=== PATIENT | female | born 1930 | race Caucasian/White ===

== ENCOUNTER 2017-08-22 09:05 | Emergency (ER) | payer MEDICARE ==
[2017-08-22 09:52] LABS: #Eosinphils 0.2 thou/uL (0.0-0.7); #Lymphocytes 1.4 thou/uL (1.20-3.40); #Monocytes 0.9 thou/uL (0.11-0.59); #Neutrophils 4.4 thou/uL (1.40-6.50); %Basophils 0.6 % (0.0-1.0); %Lymphocytes 20.1 % (21.0-51.0); %Monocytes 13.1 % (0.0-10.0); %Neutrophils 63.3 % (42.0-75.0); Hemoglobin 13.3 g/dL (12.0-16.0); Mean Corpuscular HGB CONC 34.7 g/dL (32.0-36.0); Mean Corpuscular Hemoglobin 33.4 pg (27.0-31.0); Mean Corpuscular Volume 96.2 fl (81.0-99.0); Mean Platelet Volume 6.7 fL (7.4-10.4); Platelet Count 164 thou/uL (130-400); RBC Distribution Width 11.3 % (11.5-14.5); Red Blood Cell (RBC) Count 3.97 mill/uL (4.20-5.40); White Blood Cell (WBC) Count 6.9 thou/uL (4.8-10.8)
[2017-08-22 10:10] LABS: ALT (SGPT) 11 U/L (8-55); AST (SGOT) 17 U/L (5-34); Albumin 3.9 g/dL (3.4-4.8); Alkaline Phosphatase 61 U/L (40-150); Anion Gap 10 mmol/L (10-20); BUN (Urea Nitrogen) 12 mg/dL (9.8-20.1); Bilirubin, Total 0.8 mg/dL (0.2-1.2); Calc. Creatinine Clearance 0 mL/min (70-130); Calcium 10.4 mg/dL (7.8-10.44); Carbon Dioxide 25 mmol/L (23-31); Chloride 103 mmol/L (98-107); Estimated GFR-MDRD 69; Globulin 2.9 g/dL (2.4-3.5); Glucose 116 mg/dL (83-110); Potassium 4.3 mmol/L (3.5-5.1); Protein, Total 6.8 g/dL (6.0-8.3); Sodium 134 mmol/L (136-145)
--- NOTE | 2017-08-22 10:59 | RAD ---
PA AND LATERAL CHEST: Date: 08/22/17 HISTORY: Cough and congestion. FINDINGS: Lungs appear well aerated and clear of infiltrate. Heart size within normal range. Vascular markings within normal range. IMPRESSION: No evidence of focal infiltrate. POS: [facility]
[2017-08-22] MEDS ORDERED: Azithromycin 250 MG TAB ONE (11:14)
[2017-08-22] MEDS ORDERED: Ondansetron ODT 4 MG TAB ONE (11:14)
[2017-08-22] MEDS ORDERED: Dexamethasone 10 MG/ML VIAL ONE (11:14)
== END 2017-08-22 11:37 | disposition home or self-care (01) ==
LOC: ERS 09:05
DX: I10 Essential (primary) hypertension (principal); R05 Cough; M19.90 Unspecified osteoarthritis, unspecified site; E78.5 Hyperlipidemia, unspecified; Z79.899 Other long term (current) drug therapy
CPT/HCPCS: 36415; 71046; 80053; 83605; 85025; 93005; 96374; J1100; Q0162

== ENCOUNTER 2018-03-01 08:36 | Outpatient (CLI) | payer MEDICARE ==
--- NOTE | 2018-03-01 10:08 | RAD ---
TWO VIEW THORACIC SPINE SERIES: Clinical history: Thoracic radiculitis. FINDINGS: There is S-shaped curvature of the imaged thoracolumbar spine, convex to the left within the lower th oracic and convex to the right within the lumbar spine. There is multilevel moderate degenerative berta nge and kyphosis. No discrete evidence of an acute compression fracture or significant subluxation of the thoracic spine. Nonspecific densities are seen overlying the right upper abdomen. IMPRESSION: Scoliosis, kyphosis and multilevel degenerative change throughout the thoracic spine. POS: [facility]
--- NOTE | 2018-03-01 10:10 | RAD ---
CERVICAL SPINE 4 VIEWS: HISTORY: Cervical radiculopathy. COMPARISON: None. FINDINGS: There is no acute fracture or malalignment. There is moderate to severe degenerative disk space heig ht loss from C3-C7. C7 vertebra is not well seen due to the overlying shadowing from the shoulders. In the neutral position, there is minimal degenerative C3 or C4, 1 mm, anterolisthesis which increase s to 2 mm flexion and goes up to 0 mm with extension. IMPRESSION: Moderate to severe degenerative changes with low-grade translation of the C3-4 interspace, degenerati ve in nature. POS: [facility]
--- NOTE | 2018-03-01 12:45 | MRI ---
MRI CERVICAL SPINE WITHOUT CONTRAST: History: Cervical radiculopathy, neck pain and stiffness x years. Symptoms have progressed and are wo rsening. Comparison: None. Technique: Cervical spine MRI was performed without intravenous gadolinium administration. Multiseque ntial, multiplanar imaging was performed. FINDINGS: There is appropriate T1 and marrow signal intensity of the cervical vertebrae. Cervical spine vertebr al body height is maintained. There is no fracture. 2.1 mm of anterolisthesis of C2 upon C3, 2.9 mm anterolisthesis of C7 upon T1, 3 mm anterolisthesis o f C1 upon C2, 2 mm anterolisthesis of C2 upon C3. Visualized brain parenchymal, cervicomedullary junction, cervical cord and the upper thoracic cord skinner ve a normal size and signal intensity. C2-3: No significant central canal stenosis. Neural foramina are patent. C3-4: Broad based disc osteophyte complex abuts the thecal sac. Mild central canal stenosis. Mild ping ateral foraminal narrowing. C4-5: There is moderate loss of disc space height. No significant central canal stenosis. Neural fora ger are patent. Mild left facet hypertrophy. C5-6: Broad based disc osteophyte complex abuts the thecal sac. Subarachnoid signal intensity is stil l maintained. No significant central canal stenosis or cord signal abnormality. Mild right foraminal narrowing and minimal left foraminal narrowing. C6-7: Broad based disc osteophyte complex abuts the thecal sac. Ventral subarachnoid space is maintai beba. Disc material abuts but does not cause any significant deformity of the cervical cord. Mild cent ral canal stenosis. No cord signal abnormality. Severe right and moderate left foraminal narrowing. C7-T1: No high grade central canal stenosis. Mild right and left foraminal narrowing. IMPRESSION: 1. Spondylolisthesis involving the lower cervical spine and upper thoracic spine as described above. 2. No evidence of high grade central canal stenosis or cord signal abnormality. 3. Varying degrees of neural foraminal stenosis as detailed above. Severe right foraminal narrowing a t C6-7. POS: [facility]
--- NOTE | 2018-03-01 13:32 | MRI ---
MRI THORACIC SPINE WITHOUT CONTRAST: FINDINGS: The aortic contour is nonaneurysmal. No retroperitoneal adenopathy. No marrow infiltrative process. There are modic type I endplate changes at T7-T8, T8-T9, T9-T10, and T10-T11. There is no acute fracture or malalignment. At T7-T8, there is a broad-based posterior di sk bulge narrowing the ventral CSF space, without significant spinal canal narrowing. The neural for ana are patent. At T8-T9, there is also a broad-based posterior disk osteophyte complex, also mild ly narrowing the ventral CSF space, without significant spinal canal narrowing. No significant neura l foraminal narrowing. At T9-T10, there is moderate degenerative disk space height loss. A posterio r central disk osteophyte complex narrows the ventral CSF space to approximately 7 mm. No significan t neural foraminal narrowing. IMPRESSION: 1. Mild to moderate spondylosis of the thoracic spine with multiple levels of ventral cerebrospinal fluid space narrowing without significant neural foraminal narrowing. 2. Mild reversed S-shaped scoliosis. POS: [facility]
== END 2018-03-01 08:37 | disposition home or self-care (01) ==
LOC: BICMRI 08:36
PROVIDERS: ATTEND Nurse Practitioner Family
DX: M47.22 Other spondylosis with radiculopathy, cervical region (principal); M47.24 Other spondylosis with radiculopathy, thoracic region; M51.16 Intervertebral disc disorders with radiculopathy, lumbar region; M41.9 Scoliosis, unspecified; M43.12 Spondylolisthesis, cervical region; M43.14 Spondylolisthesis, thoracic region; M48.02 Spinal stenosis, cervical region
CPT/HCPCS: 72050; 72070; 72141; 72146

== ENCOUNTER 2018-03-25 08:16 | Outpatient (CLI) | payer MEDICARE ==
--- NOTE | 2018-03-25 09:36 | RAD ---
THREE VIEWS THORACIC SPINE: History: Thoracic radiculitis. Date: 03-25-18 Comparison: 03-01-18 FINDINGS: AP, lateral, and swimmer's views of the thoracic spine demonstrate some mild S-shaped scoliotic curva ture of the thoracic spine. Small anterior osteophytes compatible with degenerative changes seen. No evidence of acute thoracic spine fracture is seen. Radiographic appearance of the thoracic spine is s table and unchanged. IMPRESSION: Some degenerative changes seen in the thoracic spine. No acute thoracic spine pathology is seen. The patient's MRI was approximately one month earlier. If there is acute thoracic spine symptoms, rep eat MRI may be of use. POS: [facility]
--- NOTE | 2018-03-25 09:38 | RAD ---
LUMBAR SPINE FOUR VIEWS: Technique: Lateral, flexion and extension and AP views of the lumbar spine are submitted. Comparison: None available. FINDINGS: Images demonstrate S-shaped scoliosis of the lumbar spine. Five non-rib bearing lumbar vertebrae are seen. There is disc space height loss at all of the lumbar levels. No definite evidence of acute frac tures or anterolisthesis is seen. No significant abnormalities seen on flexion or extension views. POS: [facility]
== END 2018-03-25 08:17 | disposition home or self-care (01) ==
LOC: RAD 08:16
PROVIDERS: ATTEND Nurse Practitioner Family
DX: M47.816 Spondylosis without myelopathy or radiculopathy, lumbar region (principal); M47.24 Other spondylosis with radiculopathy, thoracic region
CPT/HCPCS: 72070; 72110

== ENCOUNTER 2018-04-02 13:03 | Outpatient (CLI) | payer MEDICARE ==
--- NOTE | 2018-04-02 15:05 | MRI ---
THORACIC SPINE MRI WITHOUT CONTRAST: Date: 04/02/18 HISTORY: Thoracic spine radiculopathy. Pain. COMPARISON: 03/10/18. TECHNIQUE: Thoracic spine MRI is performed without intravenous Gadolinium administration. Multisequential, multi planar imaging is performed. FINDINGS: Interval T1 marrow signal hypointensity involving the superior 3/4 of the T11 vertebral body. There i s associated STIR hyperintensity suggesting vertebral body edema from a fracture. Minimal compression fracture is suspected. There is no significant loss of vertebral body height or significant retropul fabiola. There is evidence of Type I and II Modic change at the T6-T7 level, unchanged from the previous examination. There is stable anterolisthesis of T1 upon T2 and T2 upon T3. Visualized mediastinal structures, lung parenchyma, and solid organs are unremarkable. Conus medullaris terminates at the L1-L2 disc space level. There is stable degenerative change of the thoracic spine with varying degrees of central canal stenosis. Neural foramina are patent. With regard to the thoracic cord, there is no malacic change. No T2 hyperintensity or cord expansion. IMPRESSION: 1. Stable degenerative changes of the thoracic spine. 2. Interval abnormal T1 marrow signal hypointensity with associated edema involving the superior 3/4 of the T11 vertebral body suggesting edema from a probable minimal osteoporotic fracture. POS: [facility]
--- NOTE | 2018-04-02 15:19 | MRI ---
MRI LUMBAR SPINE: Date: 04-02-18 Provided Clinical History: Back pain. FINDINGS: No comparisons. Five lumbar vertebral bodies are assumed. Lumbar alignment appears normal. Lumbar vertebral body heig hts appear preserved. Recent superior endplate compression deformity of T11 is seen on the sagittal i mages. The conus medullaris is normal in single and terminates at an appropriate level. The visualize d extraspinal soft tissues demonstrate no significant abnormality. L1-2: There is prominent disc space height loss and endplate degenerative change. There is a broad ba sed disc bulge and bilateral facet arthritis. There is effacement of the left subarticular region wit h potential for impingement on the traversing left L2 nerve root. There is no significant foraminal n arrowing apparent. L2-3: There is a broad based disc bulge and bilateral facet arthritis. There is mild/moderate left an d no significant right foraminal narrowing. There is mild central canal stenosis. L3-4: There is disc space height loss and endplate degenerative change. There is a broad based disc b ulge and bilateral facet arthritis. There is circumferential attenuation of the thecal sac by epidura l fat. There is moderate central canal stenosis. There is severe left foraminal narrowing. There is n o significant right foraminal narrowing. L4-5: There is a endplate degenerative change and Schmorl's node formation. There is a broad based di sc bulge and bilateral facet arthritis. There is effacement of the right greater than left subarticul ar regions with potential for impingement on the traversing right L5 nerve root. There is mild left a nd mild/moderate right foraminal narrowing. L5-S1: There is disc space height loss and a broad based disc bulge. There is bilateral facet arthrit is. There is moderate bilateral foraminal narrowing. There is no significant central canal stenosis a pparent. IMPRESSION: 1. Recent appearing superior endplate compression deformity at T11. 2. Advanced multilevel lumbar disc and facet degenerative change producing areas of canal and foramin al narrowing as above. POS: [facility]
== END 2018-04-02 13:04 | disposition home or self-care (01) ==
LOC: TBSIIMAG 13:03
PROVIDERS: ATTEND Nurse Practitioner Family
DX: M54.6 Pain in thoracic spine (principal); M54.5 Low back pain; M43.8X4 Other specified deforming dorsopathies, thoracic region; M47.816 Spondylosis without myelopathy or radiculopathy, lumbar region; M47.817 Spondylosis without myelopathy or radiculopathy, lumbosacral region; M48.061 Spinal stenosis, lumbar region without neurogenic claudication; M48.07 Spinal stenosis, lumbosacral region; M47.814 Spondylosis without myelopathy or radiculopathy, thoracic region
CPT/HCPCS: 72146; 72148

== ENCOUNTER 2018-11-15 15:12 | Outpatient (CLI) | payer MEDICARE ==
--- NOTE | 2018-11-15 15:42 | RAD ---
LEFT HIP 2 VIEWS: Date: 11/15/18 HISTORY: Left hip pain. FINDINGS/IMPRESSION: Mild degenerative changes are present. No fracture, dislocation, or bony destruction identified. POS: [facility]
--- NOTE | 2018-11-15 15:43 | RAD ---
AP PELVIS: Date: 11/15/18 HISTORY: Left hip pain. FINDINGS/IMPRESSION: There are degenerative changes in the hip joints bilaterally. No fracture, dislocation, or bony destr uction is seen. There is lumbar spondylosis. POS: [facility]
== END 2018-11-15 15:13 | disposition home or self-care (01) ==
LOC: RAD 15:12
PROVIDERS: ATTEND Nurse Practitioner Family
DX: M25.552 Pain in left hip (principal); M16.0 Bilateral primary osteoarthritis of hip; M47.816 Spondylosis without myelopathy or radiculopathy, lumbar region
CPT/HCPCS: 72170

== ENCOUNTER 2018-12-29 10:05 | Outpatient (CLI) | payer MEDICARE ==
--- NOTE | 2018-12-29 11:35 | MRI ---
Exam: Left hip MRI without IV contrast: HISTORY: Left hip pain FINDINGS: No evidence for abnormal marrow signal to suggest avascular necrosis, fracture, or acute stress injur y. There is some generalized mild bilateral hip joint cartilage loss. Minimal fluid in the left trochanteric bursa evidence for bursitis. No evidence for acute tendon tear or acute muscle injury. B lunted degenerated appearing acetabular labrum including the anterior and lateral labrum evidence for severe fraying-degenerative labral tears. IMPRESSION: Small amount of fluid in the left trochanteric bursa. Generalized degenerative-osteoarthrosis changes of both hip joints with some joint space loss bilater ally. Degenerated appearing labrum evidence for degenerative labral tear/severe fraying.
== END 2018-12-29 10:06 | disposition home or self-care (01) ==
LOC: BICMRI 10:05
PROVIDERS: ATTEND Specialist
DX: M25.552 Pain in left hip (principal); M16.0 Bilateral primary osteoarthritis of hip

== ENCOUNTER 2019-01-03 09:55 | Inpatient (IN) | payer MEDICARE ==
[2019-01-03 11:04] LABS: #Eosinphils 0.2 thou/uL (0.0-0.7); #Lymphocytes 0.6 thou/uL (1.20-3.40); #Monocytes 0.5 thou/uL (0.11-0.59); #Neutrophils 2.5 thou/uL (1.40-6.50); %Basophils 0.8 % (0.0-1.0); %Eosinophils 4.6 % (0.0-10.0); %Lymphocytes 14.8 % (21.0-51.0); %Monocytes 12.7 % (0.0-10.0); %Neutrophils 67.1 % (42.0-75.0); Hemoglobin 13.3 g/dL (12.0-16.0); Mean Corpuscular HGB CONC 34.4 g/dL (32.0-36.0); Mean Corpuscular Hemoglobin 33.1 pg (27.0-31.0); Mean Corpuscular Volume 96.2 fL (78.0-98.0); Platelet Count 165 thou/uL (130-400); RBC Distribution Width 12.3 % (11.5-14.5); Red Blood Cell (RBC) Count 4.03 mill/uL (4.20-5.40); White Blood Cell (WBC) Count 3.8 thou/uL (4.8-10.8)
[2019-01-03 11:27] LABS: ALT (SGPT) 13 U/L (8-55); AST (SGOT) 17 U/L (5-34); Alkaline Phosphatase 63 U/L (40-150); Anion Gap 9 mmol/L (10-20); BUN (Urea Nitrogen) 10 mg/dL (9.8-20.1); Bilirubin, Total 0.7 mg/dL (0.2-1.2); Calc. Creatinine Clearance 0 mL/min (70-130); Calcium 10.5 mg/dL (7.8-10.44); Carbon Dioxide 27 mmol/L (23-31); Chloride 104 mmol/L (98-107); Estimated GFR-MDRD 72; Globulin 2.5 g/dL (2.4-3.5); Glucose 94 mg/dL (83-110); Potassium 3.9 mmol/L (3.5-5.1); Protein, Total 6.5 g/dL (6.0-8.3); Sodium 136 mmol/L (136-145)
--- NOTE | 2019-01-03 12:18 | RAD ---
PORTABLE CHEST: Date: 01/03/19 HISTORY: Chest tightness and shortness of breath. Bilateral leg swelling. FINDINGS: Heart size appears borderline for portable technique. The aorta is tortuous. The lungs show chronic c hange. No focal infiltrative process or signs of failure. IMPRESSION: Borderline cardiomegaly with chronic lung change. POS: [facility]
[2019-01-03 12:31] LABS: D-Dimer Test 3.11 *mcg/mL (0.27-0.43)
--- NOTE | 2019-01-03 12:52 | ULT ---
EXAM: Bilateral lower extremity venous Doppler HISTORY: Bilateral lower extremity edema. FINDINGS: Grayscale, color-flow, Doppler evaluation, spectral analysis of the bilateral lower extremities venou s structures is performed with 2-D imaging. The bilateral common femoral, superficial femoral, popliteal, posterior tibial, proximal greater saphenous and profunda femoral veins are imaged. There is increased echogenic material and decreased lumen compressibility as well as diminished flow in the right lower extremity popliteal vein compatible with nonocclusive DVT. In addition, the distal superficial femoral veins bilaterally are not well visualized on grayscale imaging limiting ev aluation for nonocclusive DVT at these levels. There is flow within each distal superficial femoral vein. There is otherwise normal luminal compressibility, flow, and augmentation in the visualized jonnathan p venous structures of the bilateral lower extremities. IMPRESSION: 1. Nonocclusive DVT right popliteal vein. 2. Suboptimal evaluation of the distal superficial femoral veins bilaterally on moore scale imaging wh ich limits evaluation for nonocclusive thrombus, there is flow within each distal superficial femoral vein. 3. Findings of right popliteal vein thrombus were discussed with Dr. Siddiqui in the emergency departm ent by the distribution engineering technologist, Chastity, at the time of this exam.
[2019-01-03 12:55] LABS: INR-International Normal Ratio 1.1; Prothrombin Time 13.9 SEC (12.0-14.7)
[2019-01-03] MEDS ORDERED: ISOVUE-370 76%-LOCM 1 ML ONE (13:14)
--- NOTE | 2019-01-03 13:32 | CT ---
CT arteriogram chest with IV contrast and 3-D imaging HISTORY: Dyspnea. Chest pain. FINDINGS: A long, thin filling defect across the pulmonary artery bifurcation extends into the segmen blanche anterior basilar segment of each lower lobe. Thoracic aorta is patent with normal branching of the great vessels at the aortic arch. Small amount of arterial calcification. Mild peripheral atelectasis of each lung. No pleural fluid or mediastinal adenopathy. IMPRESSION: Bilateral lower lobe pulmonary emboli. Overall small clot burden. Atherosclerosis. Findings were called to Dr. Siddiqui in the emergency department at 1319 hours. Code CR.
[2019-01-03] MEDS ORDERED: Enoxaparin Sodium 100 MG/ML SYRINGE ONE (14:02)
[2019-01-03] MEDS ORDERED: Nitroglycerin 0.4 MG TAB (25 Tab Bottle) PO PRN (14:24)
[2019-01-03] MEDS ORDERED: Calcium Carbonate 500 MG ChewTAB PO PRN (14:26)
[2019-01-03] MEDS ORDERED: Ondansetron PF 4 MG/2 ML Vial IVP PRN (14:26)
[2019-01-03] MEDS ORDERED: Ondansetron ODT 4 MG TAB PO PRN (14:26)
[2019-01-03] MEDS ORDERED: hydrALAZINE 20 MG/ML VIAL SLOW IVP PRN (14:28)
[2019-01-03] MEDS ORDERED: Sodium Chloride 0.9% 1,000 ML IV SCH (14:30)
[2019-01-03 14:37] LABS: Phosphorus 2.2 mg/dL (2.3-4.7)
--- NOTE | 2019-01-03 16:42 | CON ---
DATE OF CONSULTATION: HISTORY OF PRESENT ILLNESS: Aleyda Hoyos is an 88-year-old female, who came to the ER because of lower extremity swelling, edema, cellulitis. During the course of her workup, CT of chest showed bilateral lower lobe pulmonary emboli, small venogram of the leg shows a nonocclusive clot involving the right popliteal vein, she is to be admitted to telemetry awaiting bed. She says she has never smoked. No previous history of TB, pneumonia, or bronchial asthma. She has had problem with lower extremity swelling for a period of time and had some kind of work up done in [place], [place], which was nonrevealing. She says almost she is relatively active and can walk about 4 flights of stairs without getting markedly short of breath. PAST SURGICAL HISTORY: Including bilateral knee surgery, some kind of back-related surgery for chronic pain. PAST MEDICAL HISTORY: Hypertension, hyperlipidemia, previous other surgeries include hysterectomy, tonsillectomy, bilateral knee, polyp, appendix. SOCIAL HISTORY: Alcohol, none. Tobacco, none. She works for [employer]. HOME MEDICATIONS: 1. Aspirin. 2. Hydroxyzine. 3. Amlodipine 5. 4. Losartan 100. REVIEW OF SYSTEMS: Ten-point negative. PHYSICAL EXAMINATION: GENERAL: She has no distress. EXTREMITIES: 2+ ankle edema, cellulitis, right greater than left. VITAL SIGNS: Sats are 96% on room air, pulse 80, respiratory rate 18, and blood pressure 130/80. CHEST: No wheezing or crackles. CARDIAC: Normal S1 and S2. No gallops. ABDOMEN: No masses. LABORATORY DATA: White count 3000, H and H 13 and 38, and platelet count is normal. Lytes are normal. BNP is normal. IMPRESSION: Bilateral lower extremity cellulitis, edema, possibly aggravated by Norvasc, morbid obesity, chronic pain, hypertension. PLAN: Agree with Lovenox. Supportive care, PT eventually. Eliquis. We will follow while in the hospital. Minimum of 6 months of anticoagulation may consider. Stopping the Norvasc, switching to another antihypertensive medication to see whether this will improve her swelling of lower extremities. Consultation note, 70 minutes, 50% direct patient care. Job ID: [id number]
[2019-01-03] MEDS ORDERED: cloNIDine 0.1 MG TAB PO PRN (18:02)
[2019-01-03] MEDS: K-Phos Neutral 250 MG TAB PO SCH (18:17)
[2019-01-03 19:22] VITALS: BMI 34.5
--- NOTE | 2019-01-03 19:28 | HP ---
PRIMARY CARE PHYSICIAN: Derick Herring MD PRIMARY HARBOUR MASTER: Zabrina Galarza MD CHIEF COMPLAINT: Bilateral lower extremity swelling along with pain of 2 weeks duration. HISTORY OF PRESENT ILLNESS: The patient is an 88-year-old female with hypertension and hyperlipidemia, presented to the hospital with the above complaints. Over the last 2 weeks, the patient developed gradual worsening swelling in bilateral lower extremity, mainly on the right. She also had significant pain associated with the swelling. The swelling and pain got worse over the last 2 to 3 days. Lately, she has been short of breath on exertion. She also drove to [place] last week end. Recently, she gets short of breath on [id number] exertion. She denies significant orthopnea or chest discomfort while at rest. No fever or chills reported. The pain in the leg was moderate in intensity associated with movement. She denies recent immobilization except for a recent trip to [place]. She usually ambulates with the help of a walker. PAST MEDICAL HISTORY: 1. Hypertension. 2. Hyperlipidemia. PAST SURGICAL HISTORY: 1. Appendectomy. 2. Hysterectomy. 3. Bilateral knee surgeries. 4. Cataracts surgeries. 5. Tonsillectomy. ALLERGIES: THE PATIENT IS ALLERGIC TO ASPIRIN. REVIEW OF SYSTEMS: All other review of systems was reviewed and were found negative. SOCIAL HISTORY: The patient currently lives at [facility]. She is full code. Decision makers are her sons. FAMILY HISTORY: Negative for heart disease. CURRENT HOME MEDICATIONS: The patient is unable to recall any of her home medications. PHYSICAL EXAMINATION: VITAL SIGNS: Temperature 98, respirations of 18, pulse of 84, blood pressure of 156/79, and O2 saturation 96% on room air. GENERAL: An 88-year-old female, in no apparent distress at rest. HEENT: Head, atraumatic and normocephalic. Sclerae are anicteric. Moist mucous membranes. No oral lesion. NECK: Supple. No JVD appreciated. No carotid bruit. LUNGS: Showed diminished air entry at bilateral bases with scattered rales. No significant wheezing or rhonchi. LUNGS: Symmetrical. HEART: S1 and S2 present. Regular rate and rhythm. No rubs or gallops appreciated. ABDOMEN: Soft and nontender. Bowel sounds present. No rebound or guarding. No costovertebral angle tenderness. EXTREMITIES: There is significant swelling in bilateral lower extremity along with some erythema mainly in the right lower extremity. There was calf tenderness, mainly on the right. SKIN: As discussed above. LYMPH NODES: No palpable lymph nodes in the neck. NEUROLOGIC: Grossly nonfocal. Moves all 4 extremities. PSYCHIATRY: Alert, awake, and oriented x3. PERIPHERAL VASCULAR: Radial pulses palpable bilaterally. MUSCULOSKELETAL: No joint swelling or tenderness. LABORATORY FINDINGS: WBC 3.8, hemoglobin 13.3, hematocrit 38.8, and platelet 165. INR 1.1. D-dimer was 3.1. Chemistry showed sodium 136, potassium 3.9, chloride 104, bicarb 27, BUN 10, creatinine 0.76, calcium of 10.5, and phosphorus 2.2. BNP is 66.3. Troponin of less than 0.010. Bilateral lower extremity Doppler showed nonocclusive DVT in the right popliteal vein. CT angiogram of the chest by my review showed bilateral lower lobe pulmonary emboli. Overall, small clot burden. EKG by my review showed sinus rhythm with first-degree AV block with S1, Q3, T3 pattern. IMPRESSION: 1. Bilateral pulmonary embolism with right lower extremity deep venous thrombosis. 2. Suspected right lower extremity cellulitis. 3. Hypertension. 4. Hyperlipidemia. 5. Chronic kidney disease stage 2. 6. Hypercalcemia with hypophosphatemia, suspected to be due to elevated parathyroid hormone. PLAN: The patient will be monitored on the telemetry unit as inpatient. We will continue Lovenox, which she was started in the emergency room. We will start empiric antibiotics for suspected right lower extremity cellulitis. We will replace phosphorus. We will check parathyroid hormone in a.m. We will recheck labs in a.m. Resume home medications once verified. Echocardiogram will be obtained. We will consult Physical Therapy. Plan of care was discussed with the patient in detail. She stated understanding. Job ID: [id number] MTDD
[2019-01-03] MEDS: Cephalexin 250 MG CAP PO SCH (20:33)
[2019-01-03] MEDS: Doxycycline 100 MG CAP PO SCH (20:33)
[2019-01-03] MEDS: Famotidine 20 MG TAB PO SCH (20:33)
[2019-01-03] MEDS ORDERED: Enoxaparin Sodium 100 MG/ML SYRINGE SC SCH ×2 (21:00→23:59)
[2019-01-04] MEDS ORDERED: Enoxaparin Sodium 100 MG/ML SYRINGE SC SCH (02:00)
[2019-01-04 05:56] LABS: Hemoglobin 12.2 g/dL (12.0-16.0); Platelet Count 163 thou/uL (130-400)
[2019-01-04 06:17] LABS: Anion Gap 10 mmol/L (10-20); BUN (Urea Nitrogen) 8 mg/dL (9.8-20.1); Calc. Creatinine Clearance 83 mL/min (70-130); Calcium 9.9 mg/dL (7.8-10.44); Carbon Dioxide 25 mmol/L (23-31); Chloride 108 mmol/L (98-107); Estimated GFR-MDRD 80; Glucose 90 mg/dL (83-110); Sodium 139 mmol/L (136-145)
[2019-01-04] MEDS: Cephalexin 250 MG CAP PO SCH ×3 (08:35→20:25)
[2019-01-04] MEDS: Doxycycline 100 MG CAP PO SCH ×2 (08:35→20:25)
[2019-01-04] MEDS: Furosemide 40 MG TAB PO SCH (08:35)
[2019-01-04] MEDS: Famotidine 20 MG TAB PO SCH ×2 (08:35→20:25)
[2019-01-04] MEDS: Enoxaparin Sodium 100 MG/ML SYRINGE SC SCH ×2 (08:36→20:25)
[2019-01-04] MEDS: K-Phos Neutral 250 MG TAB PO SCH ×3 (08:36→17:14)
[2019-01-04] MEDS ORDERED: Furosemide 40 MG TAB PO SCH (09:00)
--- NOTE | 2019-01-04 09:39 | PRG ---
DATE OF SERVICE: 01/04/2019 SUBJECTIVE: This morning, Aleyda Hoyos is better. No shortness of breath. No pain. OBJECTIVE: VITAL SIGNS: Temperature 98, pulse 71, sats 98% on room air, respiratory rate 18, and blood pressure 129/65. CHEST: No wheezing or crackles. CARDIAC: Normal S1 and S2. No gallops. ABDOMEN: No masses. LABORATORY DATA: Unremarkable. IMPRESSION: Deep venous thrombosis, pulmonary embolism, obesity, lower extremity swelling, cellulitis. PLAN: Await echo report. Switch over to Eliquis tomorrow. Supportive care, PT. We will follow, 6 months of anticoagulation. Job ID: [id number]
[2019-01-04] MEDS: Acetaminophen 325 MG TAB PO PRN (16:45)
--- NOTE | 2019-01-04 19:41 | PDOC.HOSPP ---
- Subjective Encounter Date: 01/04/19 Encounter Time: 18:00 Subjective: Patient seen and examined for PE/DVT. SOB improving. No fever or chills. No new complaints. No overnight events - Objective Vital Signs & Weight: Vital Signs (12 hours) Temp Pulse Pulse Pulse Resp BP BP 01/04/19 15:22 97.9 F 74 16 01/04/19 12:08 98.5 F 71 17 01/04/19 10:24 75 164/71 H 01/04/19 10:23 75 72 164/71 H 143/65 H BP BP Pulse Ox Pulse Ox 01/04/19 15:22 123/62 96 01/04/19 12:08 133/68 95 01/04/19 10:24 01/04/19 10:23 97 Weight Admit Weight 203 lb 0.026 oz Weight 201 lb 8 oz I&O: 01/03/19 01/04/19 01/05/19 06:59 06:59 06:59 Intake Total 920 1440 Output Total 400 950 Balance 520 490 Result Diagrams: 01/04/19 05:41 01/04/19 05:41 Additional Labs: Laboratory Tests 01/04/19 05:41 PTH Intact 169.4 H Radiology Reviewed by me: Yes (CTA - PE) EKG Reviewed by me: Yes (Tele SR) Hospitalist ROS - Review of Systems Respiratory: reports: SOB with excertion. denies: cough, dry, shortness of breath, hemoptysis, pleuritic pain, sputum, wheezing, other Cardiovascular: reports: edema. denies: chest pain, palpitations, orthopnea, paroxysmal noc. dyspnea, light headedness, other Gastrointestinal: denies: nausea, vomiting, abdominal pain, diarrhea, constipation, melena, hematochezia, other - Medication Medications: Active Medications Generic Name Dose Route Start Last Admin Trade Name Freq PRN Reason Stop Dose Admin Acetaminophen 650 mg 01/03/19 14:26 01/04/19 16:45 Tylenol PO 650 mg Q4H PRN Administration Headache/Fever/Mild Pain (1-3) Cephalexin 500 mg 01/03/19 21:00 01/04/19 15:26 Keflex PO 500 mg TID RAYMOND Administration Doxycycline Hyclate 100 mg 01/03/19 21:00 01/04/19 08:35 Vibramycin PO 100 mg BID RAYMOND Administration Enoxaparin Sodium 90 mg 01/04/19 09:00 01/04/19 08:36 Lovenox SC 90 mg 0900,2100 RAYMOND Administration Famotidine 20 mg 01/03/19 21:00 01/04/19 08:35 Pepcid PO 20 mg BID RAYMOND Administration Furosemide 40 mg 01/04/19 09:00 01/04/19 08:35 Lasix PO 40 mg DAILY RAYMOND Administration Phosphorus 250 mg 01/03/19 17:00 01/04/19 17:14 Kphos Neutral PO 250 mg TID-WM RAYMOND Administration - Exam General Appearance: NAD Neck: no JVD Heart: RRR, no gallops, no rubs Heart - other findings: no heaves Respiratory: CTAB, no wheezes, no rales, no ronchi Gastrointestinal: soft, non-tender, non-distended, normal bowel sounds Extremities: 2+ LE edema (R>L) Neurological: no new deficit Psychiatric: normal affect, A&O x 3 Hosp A/P - Plan IMPRESSION: 1. Bilateral pulmonary embolism with right lower extremity DVT. 2. Suspected right lower extremity cellulitis. 3. Hypertension. 4. Hyperlipidemia. 5. Chronic kidney disease stage 2. 6. Hypercalcemia with hypophosphatemia, due to primary hyperparathyroidism PLAN: Cont Tele monitoring Continue Lovenox Cont Empiric Atbx Await Echo AM labs Cont PT
[2019-01-05 05:10] LABS: Hemoglobin 12.3 g/dL (12.0-16.0); Platelet Count 173 thou/uL (130-400)
[2019-01-05 05:28] LABS: Anion Gap 12 mmol/L (10-20); BUN (Urea Nitrogen) 8 mg/dL (9.8-20.1); Calc. Creatinine Clearance 82 mL/min (70-130); Carbon Dioxide 26 mmol/L (23-31); Chloride 107 mmol/L (98-107); Estimated GFR-MDRD 79; Glucose 104 mg/dL (83-110); Potassium 3.6 mmol/L (3.5-5.1); Sodium 141 mmol/L (136-145)
[2019-01-05] MEDS: Furosemide 40 MG TAB PO SCH (08:51)
[2019-01-05] MEDS: Doxycycline 100 MG CAP PO SCH ×2 (08:51→20:27)
[2019-01-05] MEDS: Famotidine 20 MG TAB PO SCH ×2 (08:51→20:27)
[2019-01-05] MEDS: Cephalexin 250 MG CAP PO SCH ×3 (08:51→20:26)
[2019-01-05] MEDS: Potassium Chloride 10 MEQ TAB PO SCH ×2 (08:51→17:33)
--- NOTE | 2019-01-05 09:55 | PRG ---
DATE OF SERVICE: 01/05/2019 SUBJECTIVE: This morning, she is better, less short of breath. OBJECTIVE: VITAL SIGNS: Blood pressure 155/73, saturations are 96% on room air, temperature 97, pulse 67, respiratory rate 18. CHEST: No wheezing, crackles. CARDIAC: Normal S1, S2. No gallops. ABDOMEN: No masses. LABORATORY DATA: Lytes are normal. H and H is stable. ASSESSMENT: Bilateral pulmonary emboli, minimally-occlusive deep venous thrombosis, obesity. PLAN: The patient can probably be switched over to [facility], home tomorrow. Six months of anticoagulation. Follow up with the primary care physician. Job ID: [id number]
[2019-01-05] MEDS: Enoxaparin Sodium 100 MG/ML SYRINGE SC SCH (09:57)
[2019-01-05] MEDS ORDERED: Apixaban 5 MG TAB PO SCH (10:00)
--- NOTE | 2019-01-05 12:42 | PDOC.HOSPP ---
- Subjective Encounter Date: 01/05/19 Encounter Time: 08:30 Subjective: Patient seen and examined for PE/DVT. SOB on mild exertion. No new complaints. No overnight events - Objective Vital Signs & Weight: Vital Signs (12 hours) Temp Pulse Resp BP BP BP BP 01/05/19 11:10 98.0 F 66 16 146/79 H 01/05/19 08:27 160/79 H 175/84 H 155/73 H 01/05/19 07:03 01/05/19 06:59 97.6 F 67 18 146/68 H 01/05/19 04:00 97.9 F 68 16 153/72 H Pulse Ox 01/05/19 11:10 97 01/05/19 08:27 01/05/19 07:03 96 01/05/19 06:59 96 01/05/19 04:00 95 Weight Admit Weight 203 lb 0.026 oz Weight 200 lb I&O: 01/04/19 01/05/19 01/06/19 06:59 06:59 06:59 Intake Total 920 1790 Output Total 400 1250 Balance 520 540 Result Diagrams: 01/05/19 04:42 01/05/19 04:42 EKG Reviewed by me: Yes (Tele SR) Hospitalist ROS - Review of Systems Respiratory: denies: cough, dry, shortness of breath, hemoptysis, SOB with excertion, pleuritic pain, sputum, wheezing, other Cardiovascular: denies: chest pain, palpitations, orthopnea, paroxysmal noc. dyspnea, edema, light headedness, other - Medication Medications: Active Medications Generic Name Dose Route Start Last Admin Trade Name Tristanq PRN Reason Stop Dose Admin Acetaminophen 650 mg 01/03/19 14:26 01/04/19 16:45 Tylenol PO 650 mg Q4H PRN Administration Headache/Fever/Mild Pain (1-3) Cephalexin 500 mg 01/03/19 21:00 01/05/19 08:51 Keflex PO 500 mg TID RAYMOND Administration Doxycycline Hyclate 100 mg 01/03/19 21:00 01/05/19 08:51 Vibramycin PO 100 mg BID RAYMOND Administration Famotidine 20 mg 01/03/19 21:00 01/05/19 08:51 Pepcid PO 20 mg BID RAYMOND Administration Furosemide 40 mg 01/04/19 09:00 01/05/19 08:51 Lasix PO 40 mg DAILY RAYMOND Administration Potassium Chloride 20 meq 01/05/19 08:00 01/05/19 08:51 Klor-Con 10 PO 20 meq BID-WM RAYMOND Administration - Exam General Appearance: NAD Neck: supple, no JVD Heart: RRR, no rubs Respiratory: CTAB, no rales Gastrointestinal: soft, non-tender, normal bowel sounds Extremities: 1+ LE edema (R > L) Hosp A/P - Plan IMPRESSION: 1. Bilateral pulmonary embolism with right lower extremity DVT. 2. Suspected right lower extremity cellulitis. 3. Hypertension. 4. Hyperlipidemia. 5. Chronic kidney disease stage 2. 6. Hypercalcemia with hypophosphatemia, due to primary hyperparathyroidism 7. Chronic diastolic HF PLAN: Start Eliquis DC Lovenox Patient understands the risk associated with anticoagulation Cont Keflex with Doxy Echo reviewed
[2019-01-05] MEDS: Apixaban 5 MG TAB PO SCH (20:27)
[2019-01-06] MEDS: Apixaban 5 MG TAB PO SCH ×2 (09:10→20:52)
[2019-01-06] MEDS: Potassium Chloride 10 MEQ TAB PO SCH ×2 (09:10→16:11)
[2019-01-06] MEDS: Doxycycline 100 MG CAP PO SCH ×2 (09:11→20:46)
[2019-01-06] MEDS: Cephalexin 250 MG CAP PO SCH ×3 (09:11→20:45)
[2019-01-06] MEDS: Furosemide 40 MG TAB PO SCH (09:11)
[2019-01-06] MEDS: Famotidine 20 MG TAB PO SCH ×2 (09:11→20:46)
--- NOTE | 2019-01-06 09:19 | PRG ---
DATE OF SERVICE: 01/06/2019 SUBJECTIVE: This morning, she is better, less short of breath. Right leg is still swollen, still somewhat erythematous. To note, her echocardiogram shows normal LV function. OBJECTIVE: VITAL SIGNS: Saturations are 98% on room air, pulse 75, respirations 17, temperature 97, blood pressure 165/83. CHEST: No wheezing or crackles. CARDIAC: Normal S1 and S2. No gallops. ABDOMEN: No masses. ASSESSMENT: Deep vein thrombosis, 6 months anticoagulation. Normal ejection fraction. Stasis and cellulitis. PLAN: Disposition home. Follow up with primary care physician. She can see Pulmonary in several months. Job ID: [id number]
--- NOTE | 2019-01-06 13:03 | PDOC.HOSPP ---
- Subjective Encounter Date: 01/06/19 Encounter Time: 12:30 Subjective: Patient seen and examined for PE/DVT. Feels ligtheaded and gen weak. No CP or SOB at rest. No new complaints. No overnight events - Objective Vital Signs & Weight: Vital Signs (12 hours) Temp Pulse Resp BP BP BP BP 01/06/19 12:11 97.5 F L 70 17 171/81 H 173/87 H 192/87 H 01/06/19 07:23 97.8 F 75 17 165/83 H 01/06/19 04:00 98.3 F 75 12 164/98 H Pulse Ox 01/06/19 12:11 96 01/06/19 07:23 96 01/06/19 04:00 97 Weight Admit Weight 203 lb 0.026 oz Weight 199 lb I&O: 01/05/19 01/06/19 01/07/19 06:59 06:59 06:59 Intake Total 1790 1320 Output Total 1250 1550 Balance 540 -230 Result Diagrams: 01/05/19 04:42 01/05/19 04:42 Radiology Reviewed by me: No (Echo - reviewed) EKG Reviewed by me: Yes (Tele SR) Hospitalist ROS - Review of Systems Respiratory: denies: cough, dry, shortness of breath, hemoptysis, SOB with excertion, pleuritic pain, sputum, wheezing, other Cardiovascular: reports: light headedness. denies: chest pain, palpitations, orthopnea, paroxysmal noc. dyspnea, edema, other - Medication Medications: Active Medications Generic Name Dose Route Start Last Admin Trade Name Freq PRN Reason Stop Dose Admin Acetaminophen 650 mg 01/03/19 14:26 01/04/19 16:45 Tylenol PO 650 mg Q4H PRN Administration Headache/Fever/Mild Pain (1-3) Apixaban 10 mg 01/05/19 21:00 01/06/19 09:10 Eliquis PO 10 mg BID RAYMOND Administration Cephalexin 500 mg 01/03/19 21:00 01/06/19 09:11 Keflex PO 500 mg TID RAYMOND Administration Doxycycline Hyclate 100 mg 01/03/19 21:00 01/06/19 09:11 Vibramycin PO 100 mg BID RAYMOND Administration Famotidine 20 mg 01/03/19 21:00 01/06/19 09:11 Pepcid PO 20 mg BID RAYMOND Administration Furosemide 40 mg 01/04/19 09:00 01/06/19 09:11 Lasix PO 40 mg DAILY RAYMOND Administration Potassium Chloride 20 meq 01/05/19 08:00 01/06/19 09:10 Klor-Con 10 PO 20 meq BID-WM RAYMOND Administration - Exam General Appearance: NAD Neck: supple, no JVD Heart: RRR, no gallops Respiratory: CTAB, no rales Gastrointestinal: soft, non-tender, normal bowel sounds Extremities: 1+ LE edema (RLE edema/erythema improving) Hosp A/P - Plan DVT proph w/SCDs IMPRESSION: 1. Bilateral pulmonary embolism with right lower extremity DVT. 2. Suspected right lower extremity cellulitis. 3. Hypertension - uncontrolled. 4. Hyperlipidemia. 5. Chronic kidney disease stage 2. 6. Hypercalcemia with hypophosphatemia, due to primary hyperparathyroidism 7. Chronic diastolic HF PLAN: BP elevated - Will restart Losartan/Clonidine Hold Amlodipine due to LE edema Cont Eliquis Cont Keflex/Doxy DC later later today or in AM if stable Patient understands the risk associated with anticoagulation
[2019-01-06] MEDS ORDERED: cloNIDine 0.1 MG TAB PO PRN (13:10)
[2019-01-06] MEDS ORDERED: Losartan 25 MG TAB PO SCH (13:15)
[2019-01-06] MEDS: Acetaminophen 325 MG TAB PO PRN (15:21)
[2019-01-06] MEDS: Losartan 25 MG TAB PO SCH (20:46)
[2019-01-06] MEDS ORDERED: Simvastatin 5 MG TAB PO SCH (21:00)
[2019-01-06] MEDS ORDERED: cloNIDine 0.1 MG TAB PO SCH (21:00)
[2019-01-07 07:21] VITALS: TEMP 97.6
[2019-01-07] MEDS: Potassium Chloride 10 MEQ TAB PO SCH (08:44)
[2019-01-07] MEDS: Furosemide 40 MG TAB PO SCH (08:45)
[2019-01-07] MEDS: Losartan 25 MG TAB PO SCH (08:45)
[2019-01-07] MEDS: Famotidine 20 MG TAB PO SCH (08:45)
[2019-01-07] MEDS: Apixaban 5 MG TAB PO SCH (08:45)
[2019-01-07] MEDS: Doxycycline 100 MG CAP PO SCH (08:45)
[2019-01-07] MEDS: Cephalexin 250 MG CAP PO SCH (08:45)
--- NOTE | 2019-01-07 09:36 | PRG ---
DATE OF SERVICE: 01/07/2019 OBJECTIVE: VITAL SIGNS: This morning, saturations are 97%, pulse 62, respiratory rate 16, and blood pressure 140/72. CHEST: No wheezing, crackles. CARDIAC: Normal S1, S2. No gallops. ASSESSMENT AND PLAN: Pulmonary embolism, deep venous thrombosis, hypertension. Home on Eliis, minimum 6 months. Will follow outpatient. Job ID: [id number]
[2019-01-07 11:59] VITALS: BP 137/68
--- NOTE | 2019-01-07 16:43 | DIS ---
DATE OF ADMISSION: 01/03/2019 DATE OF DISCHARGE: 01/07/2019 DISCHARGE DISPOSITION: Home. FOLLOWUP: 1. Follow up with primary care physician, Dr. Herring in 1 week. 2. Follow up with ENT, Dr. Cameron for primary hyperparathyroidism. 3. Follow up with Dr. Garcia after 3 to 4 weeks. ALLERGIES: THE PATIENT IS ALLERGIC TO ASPIRIN. DISCHARGE MEDICATIONS: 1. Eliquis 10 mg twice daily for next 5 days followed by 5 mg b.i.d. 2. Doxycycline 100 mg b.i.d. for next 5 days. 3. All other home medications were resumed. The patient was seen on the day of discharge. Denies any new complaints. No chest pain, shortness of breath, or palpitations. Orthostatic vitals were negative. Blood pressure was 137/68. BRIEF HOSPITAL COURSE: The patient is 88-year-old female who presented to the emergency room with bilateral lower extremity swelling along with pain of 2 weeks duration. Workup was consistent with right lower extremity DVT along with CT angiogram of the chest showing bilateral lower lobe pulmonary emboli (overall small clot burden). She was started on Lovenox, which was switched to Eliquis per Pulmonary recommendation. She would require 6 months treatment of Eliquis per Pulmonary recommendation. She understands the risk associated with anticoagulation, not limited to life-threatening complications including . The patient had significant erythema in the right lower extremity, for which she was started on oral Keflex and doxycycline for possible superimposed cellulitis. The swelling of the right lower extremity has significantly improved. She will complete 5-day course of doxycycline post discharge. The patient was found to have a calcium of 10.5 with phosphorus of 2.2. Total PTH (parathyroid hormone) level was 169.4. She was advised to follow up with ENT as outpatient for further workup on primary hyperparathyroidism. An outpatient Endocrinology followup is also recommended. Primary care physician advised to follow. DIAGNOSTIC TESTS: Echocardiogram showed left ventricular ejection fraction of 60% to 65% with diastolic dysfunction 1 of 3. There was also trace tricuspid regurgitation. FINAL DIAGNOSES: 1. Bilateral pulmonary embolism with right lower extremity deep venous thrombosis. 2. Right lower extremity cellulitis, significantly improved. The patient was seen by Wound Care. 3. Hypertension. 4. Hyperlipidemia. 5. Chronic kidney disease, stage 2. 6. Primary hyperparathyroidism. 7. Chronic diastolic heart failure. 8. Obesity with a body mass index of 34.2. PLAN: Plan of care was discussed with the patient in detail. She stated understanding. Job ID: [id number]
== END 2019-01-07 13:45 | disposition home or self-care (01) | DRG 299 ==
LOC: ERS 09:55 → ERHOLD 13:51 → 2NO 18:33
PROVIDERS: ADMIT Internal Medicine; ATTEND Internal Medicine
DX: I82.431 Acute embolism and thrombosis of right popliteal vein (principal); I26.99 Other pulmonary embolism without acute cor pulmonale; L03.115 Cellulitis of right lower limb; L03.116 Cellulitis of left lower limb; I13.0 Hypertensive heart and chronic kidney disease with heart failure and stage 1 through stage 4 chronic kidney disease, or unspecified chronic kidney disease; I50.32 Chronic diastolic (congestive) heart failure; I82.411 Acute embolism and thrombosis of right femoral vein; E78.5 Hyperlipidemia, unspecified; N18.2 Chronic kidney disease, stage 2 (mild); E66.01 Morbid (severe) obesity due to excess calories; M19.90 Unspecified osteoarthritis, unspecified site; E23.1 Drug-induced hypopituitarism; E83.39 Other disorders of phosphorus metabolism; Z90.49 Acquired absence of other specified parts of digestive tract; Z90.710 Acquired absence of both cervix and uterus; Z88.8 Allergy status to other drugs, medicaments and biological substances; Z79.899 Other long term (current) drug therapy; Z68.34 Body mass index [BMI] 34.0-34.9, adult
CPT/HCPCS: 36415; 71045; 71275; 80048; 80053; 83880; 83970; 84100; 84484; 85014; 85018; 85025; 85049; 85379; 93005; 93306; 93970; 94760; 96372; J1650; Q9966

== ENCOUNTER 2019-05-03 15:37 | Outpatient (CLI) | payer MEDICARE ==
--- NOTE | 2019-05-03 16:20 | MRI ---
EXAM: MRI lumbar spine without contrast HISTORY: Chronic back pain that radiates down both legs COMPARISON: 04/02/2018 TECHNIQUE: Multiple planar multisequence MR images were obtained of the lumbar spine without contrast . FINDINGS: The vertebral bodies demonstrate normal height and alignment without fracture or subluxation. Intervertebral discs are narrowed and there is generalized disc desiccation. The prevertebral and paraspinal soft tissues are unremarkable. Endplate degenerative changes are seen throughout the lumbar spine. The conus medullaris terminates normally at L1. T12/L1: Small disc osteophyte complex. No posterior facet arthrosis. Mild central canal stenosis. No neural foraminal stenosis L1/2: Moderate disc osteophyte complex. No posterior facet arthrosis. Moderate central canal stenos is. Moderate left and mild right neural foraminal stenosis L2/3: Small disc osteophyte complex. No posterior facet arthrosis. Mild to moderate central canal s tenosis. Moderate bilateral neural foraminal stenosis L3/4: Moderate disc osteophyte complex. Mild bilateral posterior facet arthrosis. Severe central ca nal stenosis. Moderate to severe bilateral neural foraminal stenosis L4/5: Moderate disc osteophyte complex. Mild bilateral posterior facet arthrosis. Severe central ca nal stenosis. Severe right and mild left neural foraminal stenosis L5/S1: Small disc osteophyte complex. Mild bilateral posterior facet arthrosis. No central canal st enosis. Moderate bilateral neural foraminal stenosis IMPRESSION: Degenerative changes of the lumbar spine as above. These changes are grossly stable compared to the p rior examination.
== END 2019-05-03 15:38 | disposition home or self-care (01) ==
LOC: TBSIIMAG 15:37
PROVIDERS: ATTEND Nurse Practitioner Family
DX: M51.16 Intervertebral disc disorders with radiculopathy, lumbar region (principal); M47.816 Spondylosis without myelopathy or radiculopathy, lumbar region
CPT/HCPCS: 72148

== ENCOUNTER 2020-01-03 14:41 | Outpatient (CLI) | payer MEDICARE ==
--- NOTE | 2020-01-03 15:09 | ULT ---
EXAM: Bilateral lower extremity venous Doppler US HISTORY: bilateral lower extremity edema and pain FINDINGS: Grayscale, color-flow, Doppler evaluation, spectral analysis of the bilateral lower extremities venou s structures is performed with 2-D imaging. The bilateral common femoral, superficial femoral, popliteal, posterior tibial, proximal greater saphenous and profunda femoral veins are imaged. There is normal luminal compressibility, flow, and augmentation in the visualized deep venous structu res of the bilateral lower extremities. IMPRESSION: No evidence of a deep vein thrombosis in either lower extremity.
== END 2020-01-03 14:42 | disposition home or self-care (01) ==
LOC: BICULT 14:41
PROVIDERS: ATTEND Specialist
DX: M79.89 Other specified soft tissue disorders (principal); R60.0 Localized edema
CPT/HCPCS: 93970

== ENCOUNTER 2020-07-13 10:28 | Emergency (ER) | payer MEDICARE ==
[2020-07-13 11:25] LABS: #Eosinphils 0.1 thou/uL (0.0-0.7); #Lymphocytes 0.9 thou/uL (1.20-3.40); #Monocytes 0.5 thou/uL (0.11-0.59); #Neutrophils 3.4 thou/uL (1.40-6.50); %Basophils 0.6 % (0.0-1.0); %Eosinophils 2.8 % (0.0-10.0); %Lymphocytes 18.2 % (21.0-51.0); %Monocytes 10.4 % (0.0-10.0); Hemoglobin 13.6 g/dL (12.0-16.0); Mean Corpuscular HGB CONC 34.4 g/dL (32.0-36.0); Mean Corpuscular Hemoglobin 33.2 pg (27.0-31.0); Mean Corpuscular Volume 96.5 fL (78.0-98.0); Mean Platelet Volume 7.3 fL (7.4-10.4); Platelet Count 135 thou/uL (130-400); RBC Distribution Width 12.1 % (11.5-14.5)
[2020-07-13 11:42] LABS: ALT (SGPT) 19 U/L (8-55); AST (SGOT) 27 U/L (5-34); Alkaline Phosphatase 73 U/L (40-110); Anion Gap 17 mmol/L (10-20); BUN (Urea Nitrogen) 15 mg/dL (9.8-20.1); Bilirubin, Total 0.5 mg/dL (0.2-1.2); Calc. Creatinine Clearance 0 mL/min (70-130); Calcium 10.4 mg/dL (7.8-10.44); Carbon Dioxide 22 mmol/L (23-31); Chloride 103 mmol/L (98-107); Globulin 3.4 g/dL (2.4-3.5); Glucose 115 mg/dL (83-110); Potassium 3.8 mmol/L (3.5-5.1); Protein, Total 7.4 g/dL (5.8-8.1); Sodium 138 mmol/L (136-145)
== END 2020-07-13 13:50 | disposition home or self-care (01) ==
LOC: ERS 10:28
DX: R51.9 Headache, unspecified (principal); R60.0 Localized edema; M19.90 Unspecified osteoarthritis, unspecified site; E78.5 Hyperlipidemia, unspecified; I10 Essential (primary) hypertension; Z86.711 Personal history of pulmonary embolism; Z79.899 Other long term (current) drug therapy
CPT/HCPCS: 36415; 70450; 71045; 80053; 85025; 85652; 93005

== ENCOUNTER 2020-10-31 09:00 | Inpatient (IN) | payer MEDICARE ==
[2020-10-31 18:35] VITALS: BMI 34.3
[2020-11-07 11:55] VITALS: TEMP 98.2
[2020-11-07 12:13] VITALS: BP 126/60
== END 2020-11-07 15:54 | disposition home health service (06) | DRG 176 ==
LOC: ERS 09:00 → ERHOLD 10:02 → 2SE 17:07
PROVIDERS: ADMIT Internal Medicine; ATTEND Internal Medicine
DX: I26.99 Other pulmonary embolism without acute cor pulmonale (principal); E78.5 Hyperlipidemia, unspecified; I50.9 Heart failure, unspecified; F41.9 Anxiety disorder, unspecified; G89.29 Other chronic pain; M54.9 Dorsalgia, unspecified; I11.0 Hypertensive heart disease with heart failure; R91.1 Solitary pulmonary nodule; M19.90 Unspecified osteoarthritis, unspecified site; F32.9 Major depressive disorder, single episode, unspecified; Z79.01 Long term (current) use of anticoagulants; Z88.8 Allergy status to other drugs, medicaments and biological substances; Z79.899 Other long term (current) drug therapy; Z90.49 Acquired absence of other specified parts of digestive tract; Z90.710 Acquired absence of both cervix and uterus
CPT/HCPCS: 36415; 36416; 71275; 74177; 80048; 80053; 81001; 83605; 83690; 83880; 84484; 85014; 85018; 85025; 85049; 87040; 93005; 93010; 93970; 96372; 96374; 96376; J1650; J2270; Q9967

== ENCOUNTER 2021-04-15 10:00 | Outpatient (CLI) | payer MEDICARE | END 2021-04-15 23:59 | LOC: MRI 10:00 | PROVIDERS: ATTEND Nurse Practitioner Family | DX: M47.26 Other spondylosis with radiculopathy, lumbar region (principal); M51.16 Intervertebral disc disorders with radiculopathy, lumbar region; M47.817 Spondylosis without myelopathy or radiculopathy, lumbosacral region; M48.061 Spinal stenosis, lumbar region without neurogenic claudication; M41.9 Scoliosis, unspecified; M51.25 Other intervertebral disc displacement, thoracolumbar region; M47.814 Spondylosis without myelopathy or radiculopathy, thoracic region; M48.04 Spinal stenosis, thoracic region; M48.05 Spinal stenosis, thoracolumbar region; M47.815 Spondylosis without myelopathy or radiculopathy, thoracolumbar region; M48.07 Spinal stenosis, lumbosacral region | CPT/HCPCS: 72148 ==

== ENCOUNTER 2021-05-08 08:00 | Outpatient (CLI) | payer MEDICARE | END 2021-05-08 08:01 | disposition home or self-care (01) | LOC: BICRAD 08:00 | PROVIDERS: ATTEND Family Medicine | DX: J18.9 Pneumonia, unspecified organism (principal); I77.810 Thoracic aortic ectasia | CPT/HCPCS: 71046 ==